=== PATIENT | female | born 2000 | race African-American/Black ===

== ENCOUNTER 2024-03-29 00:15 | Emergency (ER) | payer SELFPAY ==
[~2024-03-29] VITALS: Ht 149.9 cm; Wt 45.6 kg
[2024-03-29 00:23] VITALS: PULSE 96; RESP 18; TEMP 98
[2024-03-29] MEDS ORDERED: CEPHALEXIN500 MG PO (00:56)
[2024-03-29 01:12] VITALS: BP 137/83; PULSE 98; RESP 18; TEMP 98; O2SAT 100
== END 2024-03-29 01:12 | disposition home or self-care (01) ==
LOC: FSED 00:24
DX: H00.11 Chalazion right upper eyelid (principal); F17.210 Nicotine dependence, cigarettes, uncomplicated
CPT/HCPCS: 99282